=== PATIENT | male | born 1945 | race Caucasian/White ===

== ENCOUNTER 2017-02-05 10:04 | Inpatient (IN) | payer MEDICARE, BC ==
[~2017-02-05] VITALS: Ht 180.3 cm; Wt 121.1 kg
[~2017-02-05 10:04] MED LIST: DIGO125T PO; EZET1TAB33 PO; FENO145T25 PO; HYDR-2086 PO; METF500T4 PO; METO-336 PO; RAMI10TA PO
[2017-02-05] MEDS ORDERED: DILTIAZEM 25 MG INJ ONE (10:28)
[2017-02-05] MEDS ORDERED: SOD CHLORIDE 0.9% 500 ML IV STA (10:34)
[2017-02-05] MEDS ORDERED: PANTOPRAZOLE 40 MG INJ IV STA (10:34)
[2017-02-05] MEDS ORDERED: DILTIAZEM 25 MG INJ IV ONE ×2 (11:00→13:30)
[2017-02-05 11:02] LABS: BASOPHIL # 0.1 10^3/ul (0.0-0.1); BASOPHILS % 0.3 % (0.0-2.0); EOSINOPHILS # 0.3 10^3/ul (0.0-0.5); EOSINOPHILS % 1.2 % (0.0-7.0); HEMOGLOBIN 10.1 g/dl (14.0-18.0); LYMPHOCYTES # 4.1 10^3/ul (0.8-2.9); LYMPHOCYTES % 17.6 % (15.0-51.0); MEAN CORPUSCULAR HEMOGLOBIN 24.6 pg (29.0-33.0); MEAN CORPUSCULAR HGB CONC 29.7 g/dl (32.0-37.0); MEAN CORPUSCULAR VOLUME 82.7 fl (82.0-101.0); MEAN PLATELET VOLUME 11.6 fl (7.4-10.4); MONOCYTE # 1.5 10^3/ul (0.3-0.9); MONOCYTES % 6.4 % (0.0-11.0); NEUTROPHILS % 73.7 % (39.0-77.0); PLATELET COUNT 367 10^3/UL (140-415); RED BLOOD COUNT 4.11 10^6/ul (4.70-6.10); RED CELL DISTRIBUTION WIDTH 16.5 % (11.5-14.5); WHITE BLOOD COUNT 23.1 10^3/ul (4.8-10.8)
--- NOTE | 2017-02-05 11:33 | RADRPT ---
PROCEDURE: XR Chest 1 View. CLINICAL INDICATION: Shortness of breath, upper GI bleed. TECHNIQUE: AP view of the chest was obtained. COMPARISON: CR PORTABLE CHEST 01/31/2008 FINDINGS: The heart size is within normal limits. Calcified atherosclerosis is noted in the aorta. The lungs are hyperexpanded. No consolidations are identified. No pneumothorax is seen. Scattered subsegmenta l atelectasis is noted in both lungs. Osseous structures are intact. IMPRESSION: Calcified atherosclerosis in the aorta. Hyperexpanded lungs. Scattered subsegmental atelectasis in both lungs. RPTAT: AA .Nazario Pablo MD, MD Date Time Electronically viewed and signed by .Nazario Pablo MD, on 02/05/2017 11:33 .P/
[2017-02-05 11:34] LABS: ALANINE AMINOTRANSFERASE 36 IU/L (13-69); ALBUMIN 3.6 g/dl (3.3-4.9); ALBUMIN/GLOBULIN RATIO 1.38; ALKALINE PHOSPHATASE 47 IU/L (42-121); ANION GAP 17 (8-16); ASPARTATE AMINO TRANSFERASE 24 IU/L (15-46); BILIRUBIN,INDIRECT 0.3 mg/dl (0-1.1); BILIRUBIN,TOTAL 0.3 mg/dl (0.2-1.3); BLOOD UREA NITROGEN 31 mg/dl (7-20); CALCIUM 8.7 mg/dl (8.4-10.2); CARBON DIOXIDE 20 mmol/L (21-31); CHLORIDE 110 mmol/L (97-110); CREATININE 0.91 mg/dl (0.61-1.24); GLUCOSE 207 mg/dl (70-220); POTASSIUM 4.5 mmol/L (3.5-5.1); SODIUM 142 mmol/L (135-144); TOTAL PROTEIN 6.2 g/dl (6.1-8.1)
[2017-02-05] MEDS ORDERED: METF1000 PO (11:44)
[2017-02-05 11:45] LABS: TROPONIN-I < 0.012 ng/ml (0.00-0.12)
[2017-02-05] MEDS ORDERED: CLOP75TA27 PO (11:45)
[2017-02-05] MEDS ORDERED: APIX5TAB PO (11:45)
[2017-02-05 11:47] LABS: INR 1.11; PROTIME 14.3 Sec (12.2-14.2); PT RATIO 1.1
[2017-02-05 11:48] LABS: PARTIAL THROMBOPLASTIN TIME 30.5 Sec (25.0-35.0)
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
[2017-02-05] MEDS ORDERED: METOPROLOL 25 MG TAB PO ONE (12:20)
--- NOTE | 2017-02-05 12:23 | CONS ---
Date/Time of Note Date/Time of Note DATE: 02/05/17 TIME: 12:10 Assessment/Plan Assessment/Plan Additional Assessment/Plan GI bleed Atrial fibrillation, on anticoagulation CAD with distant history of PCI Diabetes History of hypertension, currently with borderline blood pressure Dyslipidemia -Patient on Plavix as well as Eliquis. In discussion with patient, patient with PCI in 2003 and has been on Plavix since. Given current GI bleed, I would hold both medications at the current time. Heart rate has improved with fluids and IV Cardizem. Would continue IV fluids, serial hemoglobins with GI workup. Would hold any antihypertensives at the current time, continue AV korey blocking agent as blood pressure permits. If the patient is planned for any endoscopic procedure, from a cardiac perspective, patient at an intermediate risk for any untoward cardiac events, but given active GI bleed, the benefits outweigh the risks. Consultation Date/Type/Reason Admit Date/Time Type of Consultation: cv Reason for Consultation Atrial fibrillation Hx of Present Illness This is a 71-year-old male past medical history atrial fibrillation, hypertension who presents with weakness and lightheadedness. Patient woke up this morning not feeling well. He then had multiple bowel movements of dark tarry stools. He does have a known history of GI bleeding in the past. He is on Eliquis and Plavix. Because of his symptoms, patient called 9 1 and brought to the emergency room. After being given IV fluids and IV Cardizem, patient is feeling much better with no dizziness, palpitations or chest pain. 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 Exam/Review of Systems Vital Signs Vitals Vital Signs Date Time Temp Pulse Resp B/P Pulse Ox O2 Delivery O2 Flow Rate FiO2 02/05/17 11:38 102 20 126/69 99 Room Air 02/05/17 10:18 97.9 Exam No apparent distress Constitutional: alert, obese, oriented Head: normocephalic Respiratory: clear to auscultation, normal air movement Cardiovascular: irregular rhythm, other (S1-S2 heard) Gastrointestinal: bowel sounds, non-tender, soft Extremities: edema (Trace) Results Result Diagram: 02/05/17 1040 02/05/17 1040 Results 24 hrs Laboratory Tests Test 02/05/17 10:40 White Blood Count 23.1 H Red Blood Count 4.11 L Hemoglobin 10.1 L Hematocrit 34.0 L Mean Corpuscular Volume 82.7 Mean Corpuscular Hemoglobin 24.6 L Mean Corpuscular Hemoglobin Concent 29.7 L Red Cell Distribution Width 16.5 H Platelet Count 367 Mean Platelet Volume 11.6 H Neutrophils % 73.7 Lymphocytes % 17.6 Monocytes % 6.4 Eosinophils % 1.2 Basophils % 0.3 Nucleated Red Blood Cells % 0.0 Neutrophils # 17.0 H Lymphocytes # 4.1 H Monocytes # 1.5 H Eosinophils # 0.3 Basophils # 0.1 Nucleated Red Blood Cells # 0.0 Prothrombin Time 14.3 H Prothrombin Time Ratio 1.1 INR International Normalized Ratio 1.11 Activated Partial Thromboplast Time 30.5 Sodium Level 142 Potassium Level 4.5 Chloride Level 110 Carbon Dioxide Level 20 L Anion Gap 17 H Blood Urea Nitrogen 31 H Creatinine 0.91 Glucose Level 207 Calcium Level 8.7 Total Bilirubin 0.3 Direct Bilirubin 0.00 Indirect Bilirubin 0.3 Aspartate Amino Transf (AST/SGOT) 24 Alanine Aminotransferase (ALT/SGPT) 36 Alkaline Phosphatase 47 Troponin I < 0.012 Total Protein 6.2 Albumin 3.6 Globulin 2.60 Albumin/Globulin Ratio 1.38 Procedures Procedures ECG demonstrates atrial fibrillation at 92 bpm, QRS 82 ms, no significant ST abnormalities Andrea Ch DO Feb 05, 2017 12:21
[2017-02-05] MEDS: SOD CHLORIDE 0.9% 1,000 ML IV SCH ×2 (13:11→22:30)
[2017-02-05] MEDS ORDERED: HYDROCODONE/APAP (5/325) TAB PO ONE (13:30)
[2017-02-05] MEDS ORDERED: PANTOPRAZOLE 40 MG INJ IV ONE (13:30)
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
[2017-02-05 15:50] VITALS: BP 116/67; PULSE 108; RESP 18
[2017-02-05] MEDS ORDERED: NACL 0.9% 3 ML SYG IV SCH (16:30)
[2017-02-05] MEDS ORDERED: DOCUSATE SODIUM 100 MG CAP PO PRN (16:30)
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
[2017-02-05] MEDS ORDERED: GLUCOSE GEL 15 GRAM TUBE BUCCAL PRN (17:30)
[2017-02-05] MEDS ORDERED: DEXTROSE 50% 50 ML SYRINGE IV PRN ×2 (17:30)
[2017-02-05] MEDS ORDERED: GLUCOSE GEL 15 GRAM TUBE PO PRN ×2 (17:30)
[2017-02-05] MEDS ORDERED: GLUCAGON 1 MG INJ IM PRN (17:30)
[2017-02-05] MEDS: SUCRALFATE 1 GM TAB PO SCH (17:59)
[2017-02-05] MEDS: metFORMIN 500 MG TAB PO SCH (17:59)
[2017-02-05] MEDS ORDERED: CYANOCOBALAMIN 1000 MCG INJ IM SCH (18:00)
[2017-02-05] MEDS ORDERED: SOD CHLORIDE 0.9% 500 ML IV ONE (18:00)
[2017-02-05] MEDS: PANTOPRAZOLE IV 80 MG in SOD CHLORIDE 0.9% 100 ML IV SCH (18:31)
[2017-02-05 19:01] VITALS: Ht 180.3 cm; Wt 121.1 kg
[2017-02-05 19:44] VITALS: BP 116/65; RESP 18
[2017-02-05 20:02] VITALS: PULSE 120
[2017-02-05] MEDS ORDERED: EZETIMIBE SIMVASTATIN PO SCH (21:00)
[2017-02-05 21:20] LABS: BASOPHILS % 0.3 % (0.0-2.0); EOSINOPHILS # 0.2 10^3/ul (0.0-0.5); EOSINOPHILS % 1.5 % (0.0-7.0); HEMATOCRIT 25.9 % (42.0-52.0); HEMOGLOBIN 7.9 g/dl (14.0-18.0); LYMPHOCYTES # 3.3 10^3/ul (0.8-2.9); MEAN CORPUSCULAR HEMOGLOBIN 25.4 pg (29.0-33.0); MEAN CORPUSCULAR HGB CONC 30.5 g/dl (32.0-37.0); MEAN CORPUSCULAR VOLUME 83.3 fl (82.0-101.0); MEAN PLATELET VOLUME 11.3 fl (7.4-10.4); MONOCYTE # 0.9 10^3/ul (0.3-0.9); MONOCYTES % 7.8 % (0.0-11.0); NEUTROPHIL # 7.2 10^3/ul (1.6-7.5); NEUTROPHILS % 61.4 % (39.0-77.0); PLATELET COUNT 280 10^3/UL (140-415); RED BLOOD COUNT 3.11 10^6/ul (4.70-6.10); RED CELL DISTRIBUTION WIDTH 16.4 % (11.5-14.5); WHITE BLOOD COUNT 11.7 10^3/ul (4.8-10.8)
[2017-02-05] MEDS: METOPROLOL 25 MG TAB PO SCH (21:49)
[2017-02-05] MEDS: SOD FERRIC GLUC COMPLX 125 MG in SOD CHLORIDE 0.9% 100 ML IVPB SCH (22:15)
[2017-02-05] MEDS: HYDROCODONE/APAP (5/325) TAB PO PRN (23:50)
[2017-02-06] VITALS (19 sets, daily range): BP systolic 100–141; BP diastolic 56–83; PULSE 94–171; RESP 14–24
[2017-02-06] MEDS ORDERED: TEMAZEPAM 15 MG CAP PO PRN ×2 (00:15→00:16)
[2017-02-06] MEDS: SUCRALFATE 1 GM TAB PO SCH ×4 (00:20→18:27)
[2017-02-06] MEDS: ACCU-CHEK XX SCH (02:00)
[2017-02-06] MEDS: PANTOPRAZOLE IV 80 MG in SOD CHLORIDE 0.9% 100 ML IV SCH ×3 (04:30→22:00)
[2017-02-06] MEDS: LIDOCAINE 5% PATCH TD SCH (05:10)
[2017-02-06] MEDS: HYDROCODONE/APAP (5/325) TAB PO PRN (06:18)
[2017-02-06] MEDS: metFORMIN 500 MG TAB PO SCH ×2 (07:55→18:27)
[2017-02-06 08:17] LABS: BASOPHILS % 0.1 % (0.0-2.0); EOSINOPHILS # 0.2 10^3/ul (0.0-0.5); EOSINOPHILS % 2.4 % (0.0-7.0); HEMATOCRIT 27.9 % (42.0-52.0); HEMOGLOBIN 8.6 g/dl (14.0-18.0); LYMPHOCYTES # 2.3 10^3/ul (0.8-2.9); LYMPHOCYTES % 25.3 % (15.0-51.0); MEAN CORPUSCULAR HEMOGLOBIN 26.1 pg (29.0-33.0); MEAN CORPUSCULAR HGB CONC 30.8 g/dl (32.0-37.0); MEAN CORPUSCULAR VOLUME 84.8 fl (82.0-101.0); MEAN PLATELET VOLUME 11.3 fl (7.4-10.4); MONOCYTE # 0.9 10^3/ul (0.3-0.9); MONOCYTES % 9.3 % (0.0-11.0); NEUTROPHIL # 5.7 10^3/ul (1.6-7.5); NEUTROPHILS % 61.9 % (39.0-77.0); PLATELET COUNT 227 10^3/UL (140-415); RED BLOOD COUNT 3.29 10^6/ul (4.70-6.10); RED CELL DISTRIBUTION WIDTH 16.4 % (11.5-14.5); WHITE BLOOD COUNT 9.2 10^3/ul (4.8-10.8)
[2017-02-06 08:51] LABS: ALBUMIN 2.7 g/dl (3.3-4.9); ALBUMIN/GLOBULIN RATIO 1.17; BILIRUBIN,INDIRECT 0.6 mg/dl (0-1.1); BILIRUBIN,TOTAL 0.6 mg/dl (0.2-1.3); CALCIUM 8.7 mg/dl (8.4-10.2); CREATININE 0.91 mg/dl (0.61-1.24); POTASSIUM 4.5 mmol/L (3.5-5.1)
[2017-02-06] MEDS ORDERED: RAMIPRIL 10 MG PO SCH (09:00)
--- NOTE | 2017-02-06 09:36 | PN ---
Date/Time of Note Date/Time of Note DATE: 02/06/17 TIME: 09:33 Assessment/Plan VTE Prophylaxis VTE Prophylaxis Intervention: SCD's Lines/Catheters [facility] Peripheral IV Assessment/Plan Assessment/Plan GI bleed Atrial fibrillation, on anticoagulation CAD with distant history of PCI Diabetes History of hypertension, currently with borderline blood pressure Dyslipidemia -Patient on Plavix as well as Eliquis. In discussion with patient, patient with PCI in 2003 and has been on Plavix since. Given current GI bleed, I would hold both medications at the current time. Heart rate has improved with fluids and IV Cardizem. Would continue IV fluids, serial hemoglobins with GI workup. Would hold any antihypertensives at the current time, continue AV korey blocking agent as blood pressure permits. If the patient is planned for any endoscopic procedure, from a cardiac perspective, patient at an intermediate risk for any untoward cardiac events, but given active GI bleed, the benefits outweigh the risks. 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 -GLYNN/cardioverison in 2-3 months -HR 120, and will monitor - currently n o po meds Subjective 24 Hr Interval Summary Free Text/Dictation the aptient with no complatins overngiht Exam/Review of Systems Vital Signs Vitals Vital Signs Date Time Temp Pulse Resp B/P Pulse Ox O2 Delivery O2 Flow Rate FiO2 02/06/17 08:14 127 02/06/17 07:44 98.0 18 132/60 98 02/05/17 15:50 Room Air Intake and Output 02/05/17 02/05/17 02/06/17 14:59 22:59 06:59 Intake Total 510 ml 300 ml Output Total 450 ml Balance 510 ml -150 ml Results Result Diagram: 02/06/17 0755 02/06/17 0755 Results 24 hrs Laboratory Tests Test 02/05/17 10:40 02/05/17 17:58 02/05/17 21:03 02/06/17 07:55 White Blood Count 23.1 H 11.7 #H 9.2 # Red Blood Count 4.11 L 3.11 #L 3.29 L Hemoglobin 10.1 L 7.9 #L 8.6 L Hematocrit 34.0 L 25.9 #L 27.9 L Mean Corpuscular Volume 82.7 83.3 84.8 Mean Corpuscular Hemoglobin 24.6 L 25.4 L 26.1 L Mean Corpuscular Hemoglobin Concent 29.7 L 30.5 L 30.8 L Red Cell Distribution Width 16.5 H 16.4 H 16.4 H Platelet Count 367 280 # 227 Mean Platelet Volume 11.6 H 11.3 H 11.3 H Neutrophils % 73.7 61.4 61.9 Lymphocytes % 17.6 28.0 25.3 Monocytes % 6.4 7.8 9.3 Eosinophils % 1.2 1.5 2.4 Basophils % 0.3 0.3 0.1 Nucleated Red Blood Cells % 0.0 0.0 0.0 Neutrophils # 17.0 H 7.2 5.7 Lymphocytes # 4.1 H 3.3 H 2.3 Monocytes # 1.5 H 0.9 0.9 Eosinophils # 0.3 0.2 0.2 Basophils # 0.1 0.0 0.0 Nucleated Red Blood Cells # 0.0 0.0 0.0 Prothrombin Time 14.3 H Prothrombin Time Ratio 1.1 INR International Normalized Ratio 1.11 Activated Partial Thromboplast Time 30.5 Sodium Level 142 141 Potassium Level 4.5 4.5 Chloride Level 110 111 H Carbon Dioxide Level 20 L 25 Anion Gap 17 H 10 # Blood Urea Nitrogen 31 H 38 H Creatinine 0.91 0.91 Glucose Level 207 125 # Calcium Level 8.7 8.7 Total Bilirubin 0.3 0.6 Direct Bilirubin 0.00 0.00 Indirect Bilirubin 0.3 0.6 Aspartate Amino Transf (AST/SGOT) 24 18 Alanine Aminotransferase (ALT/SGPT) 36 26 Alkaline Phosphatase 47 32 L Troponin I < 0.012 Total Protein 6.2 5.0 #L Albumin 3.6 2.7 L Globulin 2.60 2.30 Albumin/Globulin Ratio 1.38 1.17 Bedside Glucose 145 Medications Medications Current Medications Metoprolol Tartrate 25 mg 25 mg BID PO Last administered on 02/05/17 21:49; Admin Dose 25 MG; Start 02/05/17 at 21:00 Pantoprazole/ Sodium Chloride (Protonix Iv/NS) 100 ml @ 10 mls/hr Q10H IV Last administered on 02/06/17 04:30; Admin Dose 10 MLS/HR; Start 02/05/17 at 16 :00 Acetaminophen/ Hydrocodone Bitart ([place] (5/325)) 1 tab Q6H PRN PO PAIN LEVEL 4 -6 Last administered on 02/06/17 06:18; Admin Dose 1 TAB; Start 02/05/17 at 16: 30 Docusate Sodium (Colace) 100 mg Q12H PRN PO CONSTIPATION; Start 02/05/17 at 16: 30 Fenofibrate 145 mg 145 mg DAILY PO ; Start 02/06/17 at 09:00 Ferric Sodium Gluconate Complex/ Sodium Chloride (Ferrlecit/NS) 110 ml @ 100 mls/hr Q24H IVPB Last administered on 02/05/17 22:15; Admin Dose 100 MLS/HR; Start 02/05/17 at 19:00; Stop 02/07/17 at 20:05 Simvastatin (Zocor) 10 mg DAILY PO ; Start 02/06/17 at 09:00 EZETIMIBE (Zetia) 10 mg DAILY PO ; Start 02/06/17 at 09:00 Benazepril HCl (Lotensin) 20 mg DAILY PO ; Start 02/06/17 at 09:00 Diagnostic Test (Pha) (Accu-Chek) 1 ea 02 XX ; Start 02/06/17 at 02:00 Sucralfate (Carafate) 1 gm Q6 PO Last administered on 02/06/17 05:09; Admin Dose 1 GM; Start 02/05/17 at 18:00 Miscellaneous Information 1 ea NOTE XX ; Start 02/05/17 at 17:30 Glucose (Glutose) 15 gm Q15M PRN PO DECREASED GLUCOSE; Start 02/05/17 at 17:30 Glucose (Glutose) 22.5 gm Q15M PRN PO DECREASED GLUCOSE; Start 02/05/17 at 17: 30 Dextrose (D50w Syringe) 25 ml Q15M PRN IV DECREASED GLUCOSE; Start 02/05/17 at 17:30 Dextrose (D50w Syringe) 50 ml Q15M PRN IV DECREASED GLUCOSE; Start 02/05/17 at 17:30 Glucagon (Glucagen) 1 mg Q15M PRN IM DECREASED GLUCOSE; Start 02/05/17 at 17:30 Glucose (Glutose) 15 gm Q15M PRN BUCCAL DECREASED GLUCOSE; Start 02/05/17 at 17 :30 Temazepam (Restoril) 15 mg HS PRN PO INSOMNIA Last administered on 02/06/17 01 :22; Admin Dose 15 MG; Start 02/06/17 at 00:16 Lidocaine (Lidoderm) 1 patch DAILY TD Last administered on 02/06/17 05:10; Admin Dose 1 PATCH; Start 02/06/17 at 05:00 BAILEY MCDONOUGH MD Feb 06, 2017 09:36
--- NOTE | 2017-02-06 09:49 | PN ---
Date/Time of Note Date/Time of Note DATE: 02/06/17 TIME: 09:44 Assessment/Plan VTE Prophylaxis VTE Prophylaxis Intervention: contraindicated VTE Contraindication Reason: bleeding Lines/Catheters IV Catheter Type (from Nrsg): Peripheral IV Assessment/Plan Problems: (1) Low back pain Status: Chronic Comment: Added Lidoderm last night which has been helpful. Increase strength of [place] and frequency as needed. Add Dilaudid 1 mg IV if [place] and Lidoderm ineffective (2) Insomnia Status: Chronic Comment: Increase strength the temazepam from 15-30 mg. If this is ineffective will change to different medication (3) GI bleed Status: Acute Comment: Receiving Protonix and sucralfate. Upper endoscopy today Qualifiers: GI bleed type/associated pathology: melena Qualified Code: K92.1 - Gastrointestinal hemorrhage with melena (4) Atrial fibrillation with rapid ventricular response Status: Acute Comment: Anticoagulant on hold. (5) Diabetes mellitus type 2 in obese Status: Chronic Comment: Metformin on hold but patient is n.p.o. (6) Mixed hyperlipidemia due to type 2 diabetes mellitus Status: Chronic Comment: Statin on hold (7) Essential hypertension Status: Chronic Comment: BP regimen on hold Subjective 24 Hr Interval Summary Constitutional: No no complaints (Did not sleep well) Respiratory: no complaints Cardiovascular: no complaints Gastrointestinal: blood, other (Melena) Genitourinary: no complaints Musculoskeletal: back pain (Severe. Kept him awake.) Neurologic: no complaints Exam/Review of Systems Vital Signs Vitals VS - Last 72 Hours, by Label Date Time Temp Pulse Resp B/P Pulse Ox O2 Delivery O2 Flow Rate FiO2 02/06/17 08:14 127 02/06/17 07:44 98.0 80 18 132/60 98 02/06/17 04:03 140 02/06/17 00:01 114 02/06/17 00:00 98.0 59 20 106/56 98 02/05/17 20:02 120 02/05/17 19:44 98.0 88 18 116/65 99 02/05/17 15:50 97.8 108 18 116/67 99 Room Air 02/05/17 14:16 100 20 103/60 99 Room Air 02/05/17 13:08 136 20 116/73 99 Room Air 02/05/17 11:38 102 20 126/69 99 Room Air 02/05/17 10:35 106 20 105/92 99 Room Air 02/05/17 10:20 156 20 93/68 99 Room Air 02/05/17 10:18 97.9 143 20 116/79 99 Vital Signs Date Time Temp Pulse Resp B/P Pulse Ox O2 Delivery O2 Flow Rate FiO2 02/06/17 08:14 127 02/06/17 07:44 98.0 18 132/60 98 02/05/17 15:50 Room Air Intake and Output 02/05/17 02/05/17 02/06/17 15:00 23:00 07:00 Intake Total 510 ml 300 ml Output Total 450 ml Balance 510 ml -150 ml Exam Constitutional: alert, obese, oriented Psych: nl mood/affect, no complaints Respiratory: clear to auscultation, normal air movement Cardiovascular: nl pulses, regular rate and rhythm, No edema, No murmurs/extra sounds, No rub Gastrointestinal: bowel sounds, nl liver, spleen, non-tender, soft, No mass, No rebound or guarding Musculoskeletal: nl extremities to inspection Extremities: normal pulses, No clubbing, No cyanosis, No edema 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, nl mental status, nl speech, nl strength Results Result Diagram: 02/06/17 0755 02/06/17 0755 Results 24 hrs Laboratory Tests Test 02/05/17 10:40 02/05/17 17:58 02/05/17 21:03 02/06/17 07:55 White Blood Count 23.1 H 11.7 #H 9.2 # Red Blood Count 4.11 L 3.11 #L 3.29 L Hemoglobin 10.1 L 7.9 #L 8.6 L Hematocrit 34.0 L 25.9 #L 27.9 L Mean Corpuscular Volume 82.7 83.3 84.8 Mean Corpuscular Hemoglobin 24.6 L 25.4 L 26.1 L Mean Corpuscular Hemoglobin Concent 29.7 L 30.5 L 30.8 L Red Cell Distribution Width 16.5 H 16.4 H 16.4 H Platelet Count 367 280 # 227 Mean Platelet Volume 11.6 H 11.3 H 11.3 H Neutrophils % 73.7 61.4 61.9 Lymphocytes % 17.6 28.0 25.3 Monocytes % 6.4 7.8 9.3 Eosinophils % 1.2 1.5 2.4 Basophils % 0.3 0.3 0.1 Nucleated Red Blood Cells % 0.0 0.0 0.0 Neutrophils # 17.0 H 7.2 5.7 Lymphocytes # 4.1 H 3.3 H 2.3 Monocytes # 1.5 H 0.9 0.9 Eosinophils # 0.3 0.2 0.2 Basophils # 0.1 0.0 0.0 Nucleated Red Blood Cells # 0.0 0.0 0.0 Prothrombin Time 14.3 H Prothrombin Time Ratio 1.1 INR International Normalized Ratio 1.11 Activated Partial Thromboplast Time 30.5 Sodium Level 142 141 Potassium Level 4.5 4.5 Chloride Level 110 111 H Carbon Dioxide Level 20 L 25 Anion Gap 17 H 10 # Blood Urea Nitrogen 31 H 38 H Creatinine 0.91 0.91 Glucose Level 207 125 # Calcium Level 8.7 8.7 Total Bilirubin 0.3 0.6 Direct Bilirubin 0.00 0.00 Indirect Bilirubin 0.3 0.6 Aspartate Amino Transf (AST/SGOT) 24 18 Alanine Aminotransferase (ALT/SGPT) 36 26 Alkaline Phosphatase 47 32 L Troponin I < 0.012 Total Protein 6.2 5.0 #L Albumin 3.6 2.7 L Globulin 2.60 2.30 Albumin/Globulin Ratio 1.38 1.17 Bedside Glucose 145 Medications Medications Current Medications Metoprolol Tartrate 25 mg 25 mg BID PO Last administered on 02/05/17 21:49; Admin Dose 25 MG; Start 02/05/17 at 21:00 Pantoprazole/ Sodium Chloride (Protonix Iv/NS) 100 ml @ 10 mls/hr Q10H IV Last administered on 02/06/17 04:30; Admin Dose 10 MLS/HR; Start 02/05/17 at 16 :00 Acetaminophen/ Hydrocodone Bitart ([place] (5/325)) 1 tab Q6H PRN PO PAIN LEVEL 4 -6 Last administered on 02/06/17 06:18; Admin Dose 1 TAB; Start 02/05/17 at 16: 30 Docusate Sodium (Colace) 100 mg Q12H PRN PO CONSTIPATION; Start 02/05/17 at 16: 30 Fenofibrate 145 mg 145 mg DAILY PO ; Start 02/06/17 at 09:00 Ferric Sodium Gluconate Complex/ Sodium Chloride (Ferrlecit/NS) 110 ml @ 100 mls/hr Q24H IVPB Last administered on 02/05/17 22:15; Admin Dose 100 MLS/HR; Start 02/05/17 at 19:00; Stop 02/07/17 at 20:05 Simvastatin (Zocor) 10 mg DAILY PO ; Start 02/06/17 at 09:00 EZETIMIBE (Zetia) 10 mg DAILY PO ; Start 02/06/17 at 09:00 Benazepril HCl (Lotensin) 20 mg DAILY PO ; Start 02/06/17 at 09:00 Diagnostic Test (Pha) (Accu-Chek) 1 ea 02 XX ; Start 02/06/17 at 02:00 Sucralfate (Carafate) 1 gm Q6 PO Last administered on 02/06/17 05:09; Admin Dose 1 GM; Start 02/05/17 at 18:00 Miscellaneous Information 1 ea NOTE XX ; Start 02/05/17 at 17:30 Glucose (Glutose) 15 gm Q15M PRN PO DECREASED GLUCOSE; Start 02/05/17 at 17:30 Glucose (Glutose) 22.5 gm Q15M PRN PO DECREASED GLUCOSE; Start 02/05/17 at 17: 30 Dextrose (D50w Syringe) 25 ml Q15M PRN IV DECREASED GLUCOSE; Start 02/05/17 at 17:30 Dextrose (D50w Syringe) 50 ml Q15M PRN IV DECREASED GLUCOSE; Start 02/05/17 at 17:30 Glucagon (Glucagen) 1 mg Q15M PRN IM DECREASED GLUCOSE; Start 02/05/17 at 17:30 Glucose (Glutose) 15 gm Q15M PRN BUCCAL DECREASED GLUCOSE; Start 02/05/17 at 17 :30 Temazepam (Restoril) 15 mg HS PRN PO INSOMNIA Last administered on 02/06/17 01 :22; Admin Dose 15 MG; Start 02/06/17 at 00:16 Lidocaine (Lidoderm) 1 patch DAILY TD Last administered on 02/06/17 05:10; Admin Dose 1 PATCH; Start 02/06/17 at 05:00 TERESA WHITTEN MD Feb 06, 2017 09:49
[2017-02-06] MEDS ORDERED: HYDROmorphONE 1 MG/ML SYG IV PRN (10:00)
[2017-02-06] MEDS: EZETIMIBE 10 MG TAB PO SCH (11:10)
[2017-02-06] MEDS: SIMVASTATIN 10 MG TAB PO SCH (11:10)
[2017-02-06] MEDS: FENOFIBRATE 145 MG TAB PO SCH (11:10)
[2017-02-06] MEDS: METOPROLOL 25 MG TAB PO SCH ×2 (11:10→21:11)
[2017-02-06] MEDS: BENAZEPRIL 20 MG TAB PO SCH (11:11)
[2017-02-06] MEDS: HYDROCODONE/APAP (10/325) TAB PO PRN ×3 (11:25→20:09)
[2017-02-06] MEDS ORDERED: PROPOFOL 40 ML ONE (13:26)
[2017-02-06] MEDS ORDERED: METOPROLOL 5 MG INJ ONE (13:31)
--- NOTE | 2017-02-06 14:06 | OPPN ---
Date/Time of Note Date/Time of Note DATE: 02/06/17 TIME: 14:01 Proc Note GI Procedure Date 02/06/17 Pre-procedure Diagnosis GI Bleed Post-procedure Diagnosis Marginal Ulcer / Endoclip Deployed for hemostasis Procedure Performed: Endoscopy Surgeon see signature line Party Plan Sales Director none Anesthesia Type: MAC Tourniquet Time none EBL none Transfusion required none Grafts/Implants Endoclip Tubes/Drains none Complication(s) none Pt Condition post procedure: stable Disposition: PACU Indications: other Operative\Procedure Findings After informed consent, the patient was placed in left lateral position and sedated per anesthesia. The Olympus video endoscope was easily passed in patient's esophagus. The instrument advanced to the gastroesophageal junction stomach. Anastomosis was clearly identified with 2 limbs of small bowel. At the anastomosis a 1 cm ulcer with a visible vessel was seen. An Endo Clip was placed on the ulcer site. Hemostasis was obtained. The patient tolerated procedure well. Turnaround procedure was within normal limits. JARED ESPINOZA MD Feb 06, 2017 14:06
[2017-02-06] MEDS: SOD FERRIC GLUC COMPLX 125 MG in SOD CHLORIDE 0.9% 100 ML IVPB SCH (18:27)
[2017-02-06 20:37] LABS: HEMATOCRIT 27.4 % (42.0-52.0); HEMOGLOBIN 8.7 g/dl (14.0-18.0)
[2017-02-06] MEDS: TEMAZEPAM 15 MG CAP PO PRN (22:01)
[2017-02-07] VITALS (12 sets, daily range): BP systolic 115–144; BP diastolic 67–79; PULSE 85–139; RESP 16–18
[2017-02-07] MEDS: ACCU-CHEK XX SCH (01:56)
[2017-02-07 02:26] LABS: HEMATOCRIT 26.1 % (42.0-52.0); HEMOGLOBIN 8.2 g/dl (14.0-18.0)
[2017-02-07] MEDS: HYDROCODONE/APAP (10/325) TAB PO PRN ×5 (02:51→20:19)
[2017-02-07] MEDS: SUCRALFATE 1 GM TAB PO SCH ×4 (05:35→17:39)
[2017-02-07] MEDS: PANTOPRAZOLE IV 80 MG in SOD CHLORIDE 0.9% 100 ML IV SCH ×2 (06:00→08:00)
--- NOTE | 2017-02-07 07:04 | PQ ---
Date/Time of Note Date/Time of Note DATE: 02/07/17 TIME: 06:58 Physician Query Documentation Clarification Dear Dr. Alcala, A review of the medical record found a need for documentation clarification. H & P - Acute GI Bleeding H/H = 10.1/34-------->7.9/25.9 PRBC = 2 units received 02/05 Please clarify a diagnosis being treated ( if known). To facilitate accurate and complete coding, please dakota ( x ) the suspected diagnosis that apply: ( X ) precipitous drop in hgb/ hct ( X ) acute blood loss anemia ( ) Iron deficiency anemia only ( ) Others Please provide your response by clicking edit document, making your choice ( x ), click ok/save and finally click sign. You may also document your response on your progress notes. Thank you for your time. With appreciation, Marquis Alcocer RN, BSN, CCS, CCDS Clinical Paraprofessional Interpreter Health Information Management, CDI and Coding Services [phone] Room # 1525 - [address]~ [id number] MARQUIS ALCOCER Feb 07, 2017 07:04 MONO ALCALA MD Feb 07, 2017 14:04
[2017-02-07] MEDS: EZETIMIBE 10 MG TAB PO SCH (08:29)
[2017-02-07] MEDS: FENOFIBRATE 145 MG TAB PO SCH (08:29)
[2017-02-07] MEDS: SIMVASTATIN 10 MG TAB PO SCH (08:29)
[2017-02-07] MEDS: BENAZEPRIL 20 MG TAB PO SCH (08:29)
[2017-02-07] MEDS: LIDOCAINE 5% PATCH TD SCH ×2 (08:31→09:00)
[2017-02-07] MEDS: METOPROLOL 25 MG TAB PO SCH ×2 (08:32→21:10)
[2017-02-07] MEDS: metFORMIN 500 MG TAB PO SCH ×2 (08:43→17:39)
[2017-02-07 08:50] LABS: BASOPHILS % 0.3 % (0.0-2.0); EOSINOPHILS # 0.4 10^3/ul (0.0-0.5); EOSINOPHILS % 3.9 % (0.0-7.0); HEMATOCRIT 28.2 % (42.0-52.0); HEMOGLOBIN 8.6 g/dl (14.0-18.0); LYMPHOCYTES # 2.9 10^3/ul (0.8-2.9); LYMPHOCYTES % 32.5 % (15.0-51.0); MEAN CORPUSCULAR HEMOGLOBIN 26.7 pg (29.0-33.0); MEAN CORPUSCULAR HGB CONC 30.5 g/dl (32.0-37.0); MEAN CORPUSCULAR VOLUME 87.6 fl (82.0-101.0); MEAN PLATELET VOLUME 11.5 fl (7.4-10.4); MONOCYTE # 0.8 10^3/ul (0.3-0.9); NEUTROPHIL # 4.7 10^3/ul (1.6-7.5); PLATELET COUNT 244 10^3/UL (140-415); RED BLOOD COUNT 3.22 10^6/ul (4.70-6.10); RED CELL DISTRIBUTION WIDTH 17.1 % (11.5-14.5); WHITE BLOOD COUNT 8.9 10^3/ul (4.8-10.8)
--- NOTE | 2017-02-07 13:30 | PN ---
Date/Time of Note Date/Time of Note DATE: 02/07/17 TIME: 13:29 Assessment/Plan VTE Prophylaxis VTE Prophylaxis Intervention: SCD's Lines/Catheters IV [facility] Type (from [facility] [place] Assessment/Plan Assessment/Plan GI bleed Atrial fibrillation, on anticoagulation CAD with distant history of PCI Diabetes History of hypertension, currently with borderline blood pressure Dyslipidemia -Patient on Plavix as well as Eliquis. In discussion with patient, patient with PCI in 2003 and has been on Plavix since. Given current GI bleed, I would hold both medications at the current time. Heart rate has improved with fluids and IV Cardizem. Would continue IV fluids, serial hemoglobins with GI workup. Would hold any antihypertensives at the current time, continue AV korey blocking agent as blood pressure permits. . 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 -GLYNN/cardioverison in 2-3 months -HR 120, and will monitor - currently no po meds Subjective 24 Hr Interval Summary Free Text/Dictation The pateitn with no cahnge - no cehst pain and no sob Exam/Review of Systems Vital Signs Vitals Vital Signs Date Time Temp Pulse Resp B/P Pulse Ox O2 Delivery O2 Flow Rate FiO2 02/07/17 12:09 104 02/07/17 11:51 98.1 16 144/79 98 02/06/17 14:31 Room Air 02/06/17 13:56 15 Intake and Output 02/06/17 02/06/17 02/07/17 15:00 23:00 07:00 Intake Total 750 ml 2000 ml Balance 750 ml 2000 ml Results Result Diagram: 02/07/17 0742 02/06/17 0755 Results 24 hrs Laboratory Tests Test 02/06/17 20:30 02/07/17 02:00 02/07/17 06:05 02/07/17 07:42 Hemoglobin 8.7 L 8.2 L 8.6 L Hematocrit 27.4 L 26.1 L 28.2 L Lab Scanned Report BLOOD TRANSFUSION White Blood Count 8.9 Red Blood Count 3.22 L Mean Corpuscular Volume 87.6 Mean Corpuscular Hemoglobin 26.7 L Mean Corpuscular Hemoglobin Concent 30.5 L Red Cell Distribution Width 17.1 H Platelet Count 244 Mean Platelet Volume 11.5 H Neutrophils % 53.0 Lymphocytes % 32.5 Monocytes % 9.0 Eosinophils % 3.9 Basophils % 0.3 Nucleated Red Blood Cells % 0.0 Neutrophils # 4.7 Lymphocytes # 2.9 Monocytes # 0.8 Eosinophils # 0.4 Basophils # 0.0 Nucleated Red Blood Cells # 0.0 Test 02/07/17 07:52 02/07/17 11:44 Bedside Glucose 118 111 Medications Medications Current Medications Metoprolol Tartrate 25 mg 25 mg BID PO Last administered on 02/07/17 08:32; Admin Dose 25 MG; Start 02/05/17 at 21:00 Pantoprazole/ Sodium Chloride (Protonix Iv/NS) 100 ml @ 10 mls/hr Q10H IV Last administered on 02/07/17 06:00; Admin Dose 10 MLS/HR; Start 02/05/17 at 16 :00 Docusate Sodium (Colace) 100 mg Q12H PRN PO CONSTIPATION; Start 02/05/17 at 16: 30 Fenofibrate 145 mg 145 mg DAILY PO Last administered on 02/07/17 08:29; Admin Dose 145 MG; Start 02/06/17 at 09:00 Ferric Sodium Gluconate Complex/ Sodium Chloride (Ferrlecit/NS) 110 ml @ 100 mls/hr Q24H IVPB Last administered on 02/06/17 18:27; Admin Dose 100 MLS/HR; Start 02/05/17 at 19:00; Stop 02/07/17 at 20:05 Simvastatin (Zocor) 10 mg DAILY PO Last administered on 02/07/17 08:29; Admin Dose 10 MG; Start 02/06/17 at 09:00 EZETIMIBE (Zetia) 10 mg DAILY PO Last administered on 02/07/17 08:29; Admin Dose 10 MG; Start 02/06/17 at 09:00 Benazepril HCl (Lotensin) 20 mg DAILY PO Last administered on 02/07/17 08:29; Admin Dose 20 MG; Start 02/06/17 at 09:00 Diagnostic Test (Pha) (Accu-Chek) 1 ea 02 XX ; Start 02/06/17 at 02:00 Sucralfate (Carafate) 1 gm Q6 PO Last administered on 02/07/17 11:41; Admin Dose 1 GM; Start 02/05/17 at 18:00 Miscellaneous Information 1 ea NOTE XX ; Start 02/05/17 at 17:30 Glucose (Glutose) 15 gm Q15M PRN PO DECREASED GLUCOSE; Start 02/05/17 at 17:30 Glucose (Glutose) 22.5 gm Q15M PRN PO DECREASED GLUCOSE; Start 02/05/17 at 17: 30 Dextrose (D50w Syringe) 25 ml Q15M PRN IV DECREASED GLUCOSE; Start 02/05/17 at 17:30 Dextrose (D50w Syringe) 50 ml Q15M PRN IV DECREASED GLUCOSE; Start 02/05/17 at 17:30 Glucagon (Glucagen) 1 mg Q15M PRN IM DECREASED GLUCOSE; Start 02/05/17 at 17:30 Glucose (Glutose) 15 gm Q15M PRN BUCCAL DECREASED GLUCOSE; Start 02/05/17 at 17 :30 Lidocaine (Lidoderm) 1 patch DAILY TD Last administered on 02/06/17 05:10; Admin Dose 1 PATCH; Start 02/06/17 at 05:00 Temazepam (Restoril) 30 mg HS PRN PO INSOMNIA Last administered on 02/06/17 22 :01; Admin Dose 30 MG; Start 02/06/17 at 10:00 Acetaminophen/ Hydrocodone Bitart ([place] (10/325)) 1 tab Q4H PRN PO PAIN LEVEL 1-5 Last administered on 02/07/17 08:29; Admin Dose 1 TAB; Start 02/06/17 at 10 :00 Acetaminophen/ Hydrocodone Bitart ([place] (10/325)) 2 tab Q4H PRN PO PAIN LEVEL 6-10 Last administered on 02/07/17 12:29; Admin Dose 2 TAB; Start 02/06/17 at 10:00 Hydromorphone HCl (Dilaudid) 1 mg Q4H PRN IV SEVERE PAIN LEVEL 7-10; Start at 10:00 BAILEY MCDONOUGH MD Feb 07, 2017 13:30
--- NOTE | 2017-02-07 13:52 | CONS ---
Date/Time of Note Date/Time of Note DATE: 02/07/17 TIME: 13:47 Consult Date/Type/Reason Admit Date/Time Feb 05, 2017 at 11:51 Initial Consult Date Type of Consultation: GI Subjective No further bleeding Tolerating diet Objective Vital Signs Date Time Temp Pulse Resp B/P Pulse Ox O2 Delivery O2 Flow Rate FiO2 02/07/17 12:09 104 02/07/17 11:51 98.1 16 144/79 98 02/06/17 14:31 Room Air 02/06/17 13:56 15 Chest: Clear Cardiac: no m ,r, g Abdomen: soft, non tender Intake and Output 02/06/17 02/06/17 02/07/17 15:00 23:00 07:00 Intake Total 750 ml 2000 ml Balance 750 ml 2000 ml Results/Medications Result Diagram: 02/07/17 0742 02/06/17 0755 Results 24 hrs Laboratory Tests Test 02/06/17 20:30 02/07/17 02:00 02/07/17 06:05 02/07/17 07:42 Hemoglobin 8.7 L 8.2 L 8.6 L Hematocrit 27.4 L 26.1 L 28.2 L Lab Scanned Report BLOOD TRANSFUSION White Blood Count 8.9 Red Blood Count 3.22 L Mean Corpuscular Volume 87.6 Mean Corpuscular Hemoglobin 26.7 L Mean Corpuscular Hemoglobin Concent 30.5 L Red Cell Distribution Width 17.1 H Platelet Count 244 Mean Platelet Volume 11.5 H Neutrophils % 53.0 Lymphocytes % 32.5 Monocytes % 9.0 Eosinophils % 3.9 Basophils % 0.3 Nucleated Red Blood Cells % 0.0 Neutrophils # 4.7 Lymphocytes # 2.9 Monocytes # 0.8 Eosinophils # 0.4 Basophils # 0.0 Nucleated Red Blood Cells # 0.0 Test 02/07/17 07:52 02/07/17 11:44 Bedside Glucose 118 111 Medications Current Medications Metoprolol Tartrate (Lopressor) 25 mg BID PO Last administered on 02/07/17 08: 32; Admin Dose 25 MG; Start 02/05/17 at 21:00 Docusate Sodium (Colace) 100 mg Q12H PRN PO CONSTIPATION; Start 02/05/17 at 16: 30 Fenofibrate 145 mg 145 mg DAILY PO Last administered on 02/07/17 08:29; Admin Dose 145 MG; Start 02/06/17 at 09:00 Ferric Sodium Gluconate Complex/ Sodium Chloride (Ferrlecit/NS) 110 ml @ 100 mls/hr Q24H IVPB Last administered on 02/06/17 18:27; Admin Dose 100 MLS/HR; Start 02/05/17 at 19:00; Stop 02/07/17 at 20:05 Simvastatin (Zocor) 10 mg DAILY PO Last administered on 02/07/17 08:29; Admin Dose 10 MG; Start 02/06/17 at 09:00 EZETIMIBE (Zetia) 10 mg DAILY PO Last administered on 02/07/17 08:29; Admin Dose 10 MG; Start 02/06/17 at 09:00 Benazepril HCl (Lotensin) 20 mg DAILY PO Last administered on 02/07/17 08:29; Admin Dose 20 MG; Start 02/06/17 at 09:00 Diagnostic Test (Pha) (Accu-Chek) 1 ea 02 XX ; Start 02/06/17 at 02:00 Sucralfate (Carafate) 1 gm Q6 PO Last administered on 02/07/17 11:41; Admin Dose 1 GM; Start 02/05/17 at 18:00 Miscellaneous Information 1 ea NOTE XX ; Start 02/05/17 at 17:30 Glucose (Glutose) 15 gm Q15M PRN PO DECREASED GLUCOSE; Start 02/05/17 at 17:30 Glucose (Glutose) 22.5 gm Q15M PRN PO DECREASED GLUCOSE; Start 02/05/17 at 17: 30 Dextrose (D50w Syringe) 25 ml Q15M PRN IV DECREASED GLUCOSE; Start 02/05/17 at 17:30 Dextrose (D50w Syringe) 50 ml Q15M PRN IV DECREASED GLUCOSE; Start 02/05/17 at 17:30 Glucagon (Glucagen) 1 mg Q15M PRN IM DECREASED GLUCOSE; Start 02/05/17 at 17:30 Glucose (Glutose) 15 gm Q15M PRN BUCCAL DECREASED GLUCOSE; Start 02/05/17 at 17 :30 Lidocaine (Lidoderm) 1 patch DAILY TD Last administered on 02/06/17 05:10; Admin Dose 1 PATCH; Start 02/06/17 at 05:00 Temazepam (Restoril) 30 mg HS PRN PO INSOMNIA Last administered on 02/06/17 22 :01; Admin Dose 30 MG; Start 02/06/17 at 10:00 Acetaminophen/ Hydrocodone Bitart ([place] (10/325)) 1 tab Q4H PRN PO PAIN LEVEL 1-5 Last administered on 02/07/17 08:29; Admin Dose 1 TAB; Start 02/06/17 at 10 :00 Acetaminophen/ Hydrocodone Bitart ([place] (10/325)) 2 tab Q4H PRN PO PAIN LEVEL 6-10 Last administered on 02/07/17 12:29; Admin Dose 2 TAB; Start 02/06/17 at 10:00 Hydromorphone HCl (Dilaudid) 1 mg Q4H PRN IV SEVERE PAIN LEVEL 7-10; Start at 10:00 Pantoprazole (Protonix Tab) 40 mg BID@06,18 PO ; Start 02/07/17 at 18:00 Assessment/Plan Chief Complaint/Hosp Course Impression: 1. Marginal Ulcer Bleed - s/p clipping - stable Plan: 1. Continue ppi bid ac indefinitely 2. Gradually advance diet 3. Discussed with Dr. Dubon - restart 1 anticoagulant in 1 weeks; Then EGD to document ulcer healing in 1 month before staring second anticoagulant 4. If stable discharge in am per Dr. Alcala 5. Have told patient to call immediately for any bleeding; otherwise will arrange for EGD in 1 month Problems: JARED ESPINOZA MD Feb 07, 2017 13:52
--- NOTE | 2017-02-07 14:16 | PN ---
Date/Time of Note Date/Time of Note DATE: 02/07/17 TIME: 14:13 Assessment/Plan VTE Prophylaxis VTE Prophylaxis Intervention: contraindicated Lines/Catheters IV [facility] Type [facility]from [facility] Saline Lock Assessment/Plan Problems: (1) GI bleed Status: Acute Comment: He had a visible vessel at the anastomotic junction that was bleeding. This is been clipped. He has been stable and if continues stability then he should be able to be discharged in the morning. Resumption of 1 of 2 anticoagulants in 1 week. In 1 month he needs reevaluation and if that reevaluation shows good progress then he would resume the second anticoagulant. He should be on lifelong proton pump inhibitor therapy. Qualifiers: GI bleed type/associated pathology: melena Qualified Code: K92.1 - Gastrointestinal hemorrhage with melena (2) Atrial fibrillation with rapid ventricular response Status: Acute Comment: Noted. Rate is controlled. Resumption of anticoagulation 1 week (3) Obesity (BMI 30-39.9) Status: Chronic Comment: Calorie restriction diet (4) Diabetes mellitus type 2 in obese Status: Chronic Comment: Adequate control on current medication regimen (5) Mixed hyperlipidemia due to type 2 diabetes mellitus Status: Chronic Comment: Adequate control with current medication regimen (6) Obstructive sleep apnea Status: Chronic Comment: Stable adequate control on current medication regimen (7) Essential hypertension Status: Chronic Comment: Adequate control with medicine (8) Iron deficiency anemia Status: Chronic Comment: His anemia is stable and is also received IV iron to help replete his depleted stores Qualifiers: Iron deficiency anemia type: chronic blood loss Qualified Code: D50.0 - Iron deficiency anemia due to chronic blood loss (9) B12 deficiency Status: Chronic Comment: Stable and has had replacement. This is due to his prior bariatric surgery (10) Coronary artery disease Status: Chronic Comment: Quiescent Qualifiers: Coronary Disease-Associated Artery/Lesion type: minto artery [place] vs. transplanted heart: minto heart Associated angina: without angina Qualified Code: I25.10 - Coronary artery disease involving minto coronary artery of minto heart without angina pectoris Subjective 24 Hr Interval Summary Free Text/Dictation Patient reports that he is feeling better today. Constitutional: no complaints Respiratory: no complaints Cardiovascular: no complaints Gastrointestinal: no complaints Genitourinary: no complaints Musculoskeletal: no complaints Exam/Review of Systems Vital Signs Vitals Vital Signs Date Time Temp Pulse Resp B/P Pulse Ox O2 Delivery O2 Flow Rate FiO2 02/07/17 12:09 104 02/07/17 11:51 98.1 16 144/79 98 02/06/17 14:31 Room Air 02/06/17 13:56 15 Intake and Output 02/06/17 02/06/17 02/07/17 15:00 23:00 07:00 Intake Total 750 ml 2000 ml Balance 750 ml 2000 ml Exam Constitutional: alert, oriented Neck: non-tender, supple Respiratory: clear to auscultation, normal air movement Cardiovascular: irregular rhythm, nl pulses Gastrointestinal: nl liver, spleen, non-tender, soft Results Result Diagram: 02/07/17 0742 02/06/17 0755 Results 24 hrs Laboratory Tests Test 02/06/17 20:30 02/07/17 02:00 02/07/17 06:05 02/07/17 07:42 Hemoglobin 8.7 L 8.2 L 8.6 L Hematocrit 27.4 L 26.1 L 28.2 L Lab Scanned Report BLOOD TRANSFUSION White Blood Count 8.9 Red Blood Count 3.22 L Mean Corpuscular Volume 87.6 Mean Corpuscular Hemoglobin 26.7 L Mean Corpuscular Hemoglobin Concent 30.5 L Red Cell Distribution Width 17.1 H Platelet Count 244 Mean Platelet Volume 11.5 H Neutrophils % 53.0 Lymphocytes % 32.5 Monocytes % 9.0 Eosinophils % 3.9 Basophils % 0.3 Nucleated Red Blood Cells % 0.0 Neutrophils # 4.7 Lymphocytes # 2.9 Monocytes # 0.8 Eosinophils # 0.4 Basophils # 0.0 Nucleated Red Blood Cells # 0.0 Test 02/07/17 07:52 02/07/17 11:44 Bedside Glucose 118 111 Medications Medications Current Medications Metoprolol Tartrate (Lopressor) 25 mg BID PO Last administered on 02/07/17 08: 32; Admin Dose 25 MG; Start 02/05/17 at 21:00 Docusate Sodium (Colace) 100 mg Q12H PRN PO CONSTIPATION; Start 02/05/17 at 16: 30 Fenofibrate 145 mg 145 mg DAILY PO Last administered on 02/07/17 08:29; Admin Dose 145 MG; Start 02/06/17 at 09:00 Ferric Sodium Gluconate Complex/ Sodium Chloride (Ferrlecit/NS) 110 ml @ 100 mls/hr Q24H IVPB Last administered on 02/06/17 18:27; Admin Dose 100 MLS/HR; Start 02/05/17 at 19:00; Stop 02/07/17 at 20:05 Simvastatin (Zocor) 10 mg DAILY PO Last administered on 02/07/17 08:29; Admin Dose 10 MG; Start 02/06/17 at 09:00 EZETIMIBE (Zetia) 10 mg DAILY PO Last administered on 02/07/17 08:29; Admin Dose 10 MG; Start 02/06/17 at 09:00 Benazepril HCl (Lotensin) 20 mg DAILY PO Last administered on 02/07/17 08:29; Admin Dose 20 MG; Start 02/06/17 at 09:00 Diagnostic Test (Pha) (Accu-Chek) 1 ea 02 XX ; Start 02/06/17 at 02:00 Sucralfate (Carafate) 1 gm Q6 PO Last administered on 02/07/17 11:41; Admin Dose 1 GM; Start 02/05/17 at 18:00 Miscellaneous Information 1 ea NOTE XX ; Start 02/05/17 at 17:30 Glucose (Glutose) 15 gm Q15M PRN PO DECREASED GLUCOSE; Start 02/05/17 at 17:30 Glucose (Glutose) 22.5 gm Q15M PRN PO DECREASED GLUCOSE; Start 02/05/17 at 17: 30 Dextrose (D50w Syringe) 25 ml Q15M PRN IV DECREASED GLUCOSE; Start 02/05/17 at 17:30 Dextrose (D50w Syringe) 50 ml Q15M PRN IV DECREASED GLUCOSE; Start 02/05/17 at 17:30 Glucagon (Glucagen) 1 mg Q15M PRN IM DECREASED GLUCOSE; Start 02/05/17 at 17:30 Glucose (Glutose) 15 gm Q15M PRN BUCCAL DECREASED GLUCOSE; Start 02/05/17 at 17 :30 Lidocaine (Lidoderm) 1 patch DAILY TD Last administered on 02/06/17 05:10; Admin Dose 1 PATCH; Start 02/06/17 at 05:00 Temazepam (Restoril) 30 mg HS PRN PO INSOMNIA Last administered on 02/06/17 22 :01; Admin Dose 30 MG; Start 02/06/17 at 10:00 Acetaminophen/ Hydrocodone Bitart ([place] (10/325)) 1 tab Q4H PRN PO PAIN LEVEL 1-5 Last administered on 02/07/17 08:29; Admin Dose 1 TAB; Start 02/06/17 at 10 :00 Acetaminophen/ Hydrocodone Bitart ([place] (10/325)) 2 tab Q4H PRN PO PAIN LEVEL 6-10 Last administered on 02/07/17 12:29; Admin Dose 2 TAB; Start 02/06/17 at 10:00 Hydromorphone HCl (Dilaudid) 1 mg Q4H PRN IV SEVERE PAIN LEVEL 7-10; Start at 10:00 Pantoprazole (Protonix Tab) 40 mg BID@,18 PO ; Start 02/07/17 at 18:00 MONO NGO MD Feb 07, 2017 14:16
[2017-02-07 15:37] LABS: HEMATOCRIT 28.6 % (42.0-52.0); HEMOGLOBIN 8.9 g/dl (14.0-18.0)
[2017-02-07] MEDS: PANTOPRAZOLE (EC) 40 MG TAB PO SCH (17:39)
[2017-02-07] MEDS: SOD FERRIC GLUC COMPLX 125 MG in SOD CHLORIDE 0.9% 100 ML IVPB SCH (20:13)
[2017-02-07] MEDS: TEMAZEPAM 15 MG CAP PO PRN (22:02)
[2017-02-07 23:14] LABS: HEMATOCRIT 27.1 % (42.0-52.0); HEMOGLOBIN 8.2 g/dl (14.0-18.0)
[2017-02-08] VITALS (10 sets, daily range): BP systolic 112–140; BP diastolic 54–76; PULSE 83–105; RESP 16–18
[2017-02-08] MEDS: ACCU-CHEK XX SCH (02:00)
[2017-02-08] MEDS: HYDROCODONE/APAP (10/325) TAB PO PRN ×3 (04:48→13:24)
[2017-02-08] MEDS: PANTOPRAZOLE (EC) 40 MG TAB PO SCH (06:07)
[2017-02-08] MEDS: SUCRALFATE 1 GM TAB PO SCH ×3 (06:07→12:57)
[2017-02-08 07:19] LABS: BASOPHILS % 0.3 % (0.0-2.0); EOSINOPHILS # 0.3 10^3/ul (0.0-0.5); EOSINOPHILS % 4.7 % (0.0-7.0); HEMATOCRIT 26.3 % (42.0-52.0); HEMOGLOBIN 7.8 g/dl (14.0-18.0); LYMPHOCYTES # 1.8 10^3/ul (0.8-2.9); LYMPHOCYTES % 28.4 % (15.0-51.0); MEAN CORPUSCULAR HEMOGLOBIN 26.2 pg (29.0-33.0); MEAN CORPUSCULAR HGB CONC 29.7 g/dl (32.0-37.0); MEAN CORPUSCULAR VOLUME 88.3 fl (82.0-101.0); MONOCYTE # 0.6 10^3/ul (0.3-0.9); MONOCYTES % 10.1 % (0.0-11.0); NEUTROPHIL # 3.5 10^3/ul (1.6-7.5); NEUTROPHILS % 55.5 % (39.0-77.0); PLATELET COUNT 217 10^3/UL (140-415); RED BLOOD COUNT 2.98 10^6/ul (4.70-6.10); RED CELL DISTRIBUTION WIDTH 18.2 % (11.5-14.5); WHITE BLOOD COUNT 6.2 10^3/ul (4.8-10.8)
[2017-02-08] MEDS: SIMVASTATIN 10 MG TAB PO SCH (08:38)
[2017-02-08] MEDS: metFORMIN 500 MG TAB PO SCH (08:38)
[2017-02-08] MEDS: METOPROLOL 25 MG TAB PO SCH (08:39)
[2017-02-08] MEDS: EZETIMIBE 10 MG TAB PO SCH (08:40)
[2017-02-08] MEDS: BENAZEPRIL 20 MG TAB PO SCH (08:40)
[2017-02-08] MEDS: FENOFIBRATE 145 MG TAB PO SCH (08:40)
[2017-02-08] MEDS: LIDOCAINE 5% PATCH TD SCH (09:00)
--- NOTE | 2017-02-08 09:50 | CONS ---
Date/Time of Note Date/Time of Note DATE: 02/08/17 TIME: 09:48 Assessment/Plan Assessment/Plan Chief Complaint/Hosp Course GI bleed Atrial fibrillation, on anticoagulation CAD with distant history of PCI Diabetes History of hypertension, currently with borderline blood pressure Dyslipidemia Problems: Additional Assessment/Plan staged restart of AC in 1 week with eventual completion in 1 month if no recurrent bleed and consideration of cardioversion thereafter Consultation Date/Type/Reason Admit Date/Time Feb 05, 2017 at 11:51 Initial Consult Date Type of Consultation: cv 24 HR Interval Summary Free Text/Dictation resting without distress, no chest pain, no sob Detailed Summary Respiratory: no complaints Cardiovascular: no complaints Gastrointestinal: no complaints Musculoskeletal: no complaints Skin: no complaints Neurologic: no complaints Endocrine: no complaints Lymphatic: no complaints Exam/Review of Systems Vital Signs Vitals Vital Signs Date Time Temp Pulse Resp B/P Pulse Ox O2 Delivery O2 Flow Rate FiO2 02/08/17 08:35 93 02/08/17 07:44 97.8 16 120/57 96 02/06/17 14:31 Room Air 02/06/17 13:56 15 Intake and Output 02/07/17 02/07/17 02/08/17 15:00 23:00 07:00 Intake Total 850 ml Balance 850 ml Exam Constitutional: alert Head: atraumatic, normocephalic Neck: supple Respiratory: clear to auscultation Cardiovascular: irregular rhythm Gastrointestinal: soft Musculoskeletal: nl extremities to inspection Extremities: normal pulses Neurological: TRAINING DEVELOPMENT SPECIALIST II-XII intact Results Result Diagram: 02/08/17 0657 02/06/17 0755 Results 24 hrs Laboratory Tests Test 02/07/17 11:44 02/07/17 15:04 02/07/17 22:34 02/08/17 06:57 Bedside Glucose 111 Hemoglobin 8.9 L 8.2 L 7.8 L Hematocrit 28.6 L 27.1 L 26.3 L White Blood Count 6.2 # Red Blood Count 2.98 L Mean Corpuscular Volume 88.3 Mean Corpuscular Hemoglobin 26.2 L Mean Corpuscular Hemoglobin Concent 29.7 L Red Cell Distribution Width 18.2 H Platelet Count 217 Mean Platelet Volume 11.0 H Neutrophils % 55.5 Lymphocytes % 28.4 Monocytes % 10.1 Eosinophils % 4.7 Basophils % 0.3 Nucleated Red Blood Cells % 0.0 Neutrophils # 3.5 Lymphocytes # 1.8 Monocytes # 0.6 Eosinophils # 0.3 Basophils # 0.0 Nucleated Red Blood Cells # 0.0 Medications Medications Current Medications Metoprolol Tartrate (Lopressor) 25 mg BID PO Last administered on 02/08/17 08: 39; Admin Dose 25 MG; Start 02/05/17 at 21:00 Docusate Sodium (Colace) 100 mg Q12H PRN PO CONSTIPATION; Start 02/05/17 at 16: 30 Fenofibrate (Tricor) 145 mg DAILY PO Last administered on 02/08/17 08:40; Admin Dose 145 MG; Start 02/06/17 at 09:00 Simvastatin (Zocor) 10 mg DAILY PO Last administered on 02/08/17 08:38; Admin Dose 10 MG; Start 02/06/17 at 09:00 EZETIMIBE (Zetia) 10 mg DAILY PO Last administered on 02/08/17 08:40; Admin Dose 10 MG; Start 02/06/17 at 09:00 Benazepril HCl (Lotensin) 20 mg DAILY PO Last administered on 02/08/17 08:40; Admin Dose 20 MG; Start 02/06/17 at 09:00 Diagnostic Test (Pha) (Accu-Chek) 1 ea 02 XX ; Start 02/06/17 at 02:00 Sucralfate (Carafate) 1 gm Q6 PO Last administered on 02/08/17 06:07; Admin Dose 1 GM; Start 02/05/17 at 18:00 Miscellaneous Information 1 ea NOTE XX ; Start 02/05/17 at 17:30 Glucose (Glutose) 15 gm Q15M PRN PO DECREASED GLUCOSE; Start 02/05/17 at 17:30 Glucose (Glutose) 22.5 gm Q15M PRN PO DECREASED GLUCOSE; Start 02/05/17 at 17: 30 Dextrose (D50w Syringe) 25 ml Q15M PRN IV DECREASED GLUCOSE; Start 02/05/17 at 17:30 Dextrose (D50w Syringe) 50 ml Q15M PRN IV DECREASED GLUCOSE; Start 02/05/17 at 17:30 Glucagon (Glucagen) 1 mg Q15M PRN IM DECREASED GLUCOSE; Start 02/05/17 at 17:30 Glucose (Glutose) 15 gm Q15M PRN BUCCAL DECREASED GLUCOSE; Start 02/05/17 at 17 :30 Lidocaine (Lidoderm) 1 patch DAILY TD Last administered on 02/07/17 09:00; Admin Dose 1 PATCH; Start 02/06/17 at 05:00 Temazepam (Restoril) 30 mg HS PRN PO INSOMNIA Last administered on 02/07/17 22 :02; Admin Dose 30 MG; Start 02/06/17 at 10:00 Acetaminophen/ Hydrocodone Bitart ([place] (10/325)) 1 tab Q4H PRN PO PAIN LEVEL 1-5 Last administered on 02/08/17 08:38; Admin Dose 1 TAB; Start 02/06/17 at 10 :00 Acetaminophen/ Hydrocodone Bitart ([place] (10/325)) 2 tab Q4H PRN PO PAIN LEVEL 6-10 Last administered on 02/08/17 04:48; Admin Dose 2 TAB; Start 02/06/17 at 10:00 Hydromorphone HCl (Dilaudid) 1 mg Q4H PRN IV SEVERE PAIN LEVEL 7-10; Start at 10:00 Pantoprazole (Protonix Tab) 40 mg BID@06,18 PO Last administered on 02/08/17 06:07; Admin Dose 40 MG; Start 02/07/17 at 18:00 JAZZY KENT MD Feb 08, 2017 09:49
--- NOTE | 2017-02-08 15:35 | PDOCDIS ---
Discharge Instructions DIAGNOSIS Discharge Diagnosis 1) GI bleed secondary to marginal ulcer. 2) Atrial Fibrillation CONDITION Patient Condition: Stable HOME CARE INSTRUCTIONS: Diet Instructions: RegularYour diet recommendation is: small amounts more frequently throughout the day ACTIVITY: Activity Restrictions: Slowly Increase Activity FOLLOW UP/APPOINTMENTS Follow-up Plan Dr. Brooks (Gastroenterology) as scheduled. Dr. Alcala (Primary MD) in one week. Dr. Dubon (Cardiology) as 1 month Return to [facility] if recurrent black or blood in stool or blood in vomit. DOMINIQUE LINDSAY MD Feb 08, 2017 15:35
[2017-02-08] MEDS ORDERED: PANT40TA4 PO (15:38)
[2017-02-08] MEDS ORDERED: SUCR1TAB27 PO (15:38)
--- NOTE | 2017-02-08 16:08 | DS ---
Date/Time of Note Date/Time of Note DATE: 02/08/17 TIME: 16:06 Discharge Summary Admission/Discharge Info Admit Date/Time Feb 05, 2017 at 11:51 Discharge Date/Time Discharge Diagnosis 1) GI bleed secondary to marginal ulcer. 2) Atrial Fibrillation Patient Condition: Stable Consults Dr. Joshua Brooks Gastroenterology. Dr. 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 He had a prior history of an upper GI bleed roughly 3-4 years ago at the anastomotic site. 6 months ago he had some symptoms of dyspepsia without evidence of GI bleeding. I placed him on omeprazole at that time which he took for 2 months and self discontinued. He woke this morning feeling more tired than usual. He had normal bowel movements and was had the need to go to the bathroom again and had a mole melanotic bowel movement. Had 3 more melanotic bowel movements and presented to the emergency room. Since he has been here he has fortunately not had more sensations. He has not had any cardiac review of systems abnormalities outside of his chronic atrial fibrillation. Please note he was scheduled to have a cardioversion in December that was postponed due to issues with the insurance company. Anticoagulated for chronic atrial fibrillation Hospital Course GI bleed Atrial fibrillation, on anticoagulation CAD with distant history of PCI Diabetes History of hypertension, currently with borderline blood pressure Dyslipidemia Home Meds Active Scripts Sucralfate (Carafate) 1 Gm Tablet, 1 GM PO Q6 for 30 Days, #120 TAB Prov:DOMINIQUE LINDSAY MD 02/08/17 Pantoprazole* (Pantoprazole*) 40 Mg Tablet.dr 40 MG PO BID@,18 for 30 Days, # 60 Prov:DOMINIQUE LINDSAY MD 02/08/17 Reported Medications Metformin Hcl* (Metformin Hcl*) 1,000 Mg Tablet, 1000 MG PO WITH BREAKFAST DINNE , #30 TAB 02/05/17 Hydrocodone Bit-Acetaminophen* (Vicodin*) 5-300 Tab, 1 EACH PO Q4H Y for PAIN, TAB 12/01/13 Fenofibrate Nanocrystallized* (Tricor*) 145 Mg Tablet, 145 MG PO DAILY, TAB 12/01/13 Ezetimibe-Simvastatin (Vytorin) 10-10 Mg Tablet, 1 TAB PO HS, TAB 12/01/13 Ramipril (Altace) 10 Mg Tablet, 10 MG PO DAILY, TAB 12/01/13 Discontinued Reported Medications Apixaban* (Eliquis*) 5 Mg Tablet, 5 MG PO BID, TAB 02/05/17 Clopidogrel Bisulfate (Clopidogrel) 75 Mg Tablet, 75 MG PO DAILY, #30 TAB 02/05/17 Digoxin* (Digoxin*) 0.125 Mg Tab, 0.125 MG PO DAILY, #30 TAB 08/01/15 Metformin Hcl* (Metformin Hcl*) 500 Mg Tablet, 500 MG PO BID, #90 TAB 08/01/15 Metoprolol Succinate* (Toprol XL*) 100 Mg Tab.sr.24h, 100 MG PO DAILY, TAB 12/01/13 Follow-up Plan Dr. Brooks (Gastroenterology) as scheduled. Dr. Alcala (Primary MD) in one week. Dr. Dubon (Cardiology) as [address] [facility] if recurrent black or blood in stool or blood in vomit. Primary Care Provider John Alcala MD Time spent on discharge: > 30 minutes Pending Labs Laboratory Tests Test 02/07/17 22:34 02/08/17 06:57 Hemoglobin 8.2g/dl (14.0-18.0) 7.8g/dl (14.0-18.0) Hematocrit 27.1% (42.0-52.0) 26.3% (42.0-52.0) White Blood Count 6.210^3/ul (4.8-10.8) Red Blood Count 2.9810^6/ul (4.70-6.10) Mean Corpuscular Volume 88.3fl (82.0-101.0) Mean Corpuscular Hemoglobin 26.2pg (29.0-33.0) Mean Corpuscular Hemoglobin Concent 29.7g/dl (32.0-37.0) Red Cell Distribution Width 18.2% (11.5-14.5) Platelet Count 74046^3/UL (140-415) Mean Platelet Volume 11.0fl (7.4-10.4) Neutrophils % 55.5% (39.0-77.0) Lymphocytes % 28.4% (15.0-51.0) Monocytes % 10.1% (0.0-11.0) Eosinophils % 4.7% (0.0-7.0) Basophils % 0.3% (0.0-2.0) Nucleated Red Blood Cells % 0.0/100WBC (0.0-0.0) Neutrophils # 3.510^3/ul (1.6-7.5) Lymphocytes # 1.810^3/ul (0.8-2.9) Monocytes # 0.610^3/ul (0.3-0.9) Eosinophils # 0.310^3/ul (0.0-0.5) Basophils # 0.010^3/ul (0.0-0.1) Nucleated Red Blood Cells # 0.010^3/ul (0.0-0.0) DOMINIQUE LINDSAY MD Feb 08, 2017 16:08
== END 2017-02-08 17:41 | disposition home or self-care (01) | DRG 378 ==
LOC: E/R 10:04 → TEL 11:51
PROVIDERS: ADMIT Internal Medicine; ATTEND Internal Medicine
PROC: 30233N1 Transfusion of Nonautologous Red Blood Cells into Peripheral Vein, Percutaneous Approach (ICD-10-PCS; 2017-02-06)
PROC: 0W3P8ZZ Control Bleeding in Gastrointestinal Tract, Via Natural or Artificial Opening Endoscopic (ICD-10-PCS; principal; 2017-02-06 13:30)
DX: K25.0 Acute gastric ulcer with hemorrhage (principal); I50.32 Chronic diastolic (congestive) heart failure; I48.2 Chronic atrial fibrillation; I11.0 Hypertensive heart disease with heart failure; D62 Acute posthemorrhagic anemia; G47.33 Obstructive sleep apnea (adult) (pediatric); E78.5 Hyperlipidemia, unspecified; I25.10 Atherosclerotic heart disease of native coronary artery without angina pectoris; E11.9 Type 2 diabetes mellitus without complications; E53.8 Deficiency of other specified B group vitamins; K91.1 Postgastric surgery syndromes; M54.5 Low back pain; D50.9 Iron deficiency anemia, unspecified; Z79.02 Long term (current) use of antithrombotics/antiplatelets; Z79.84 Long term (current) use of oral hypoglycemic drugs; Z98.84 Bariatric surgery status; Z90.3 Acquired absence of stomach [part of]; Z98.61 Coronary angioplasty status
CPT/HCPCS: 36415; 36430; 71010; 80053; 82962; 84484; 85014; 85018; 85025; 85610; 85730; 86850; 86900; 86901; 86920; 87040; 87086; 93005; 96374; 96375; 97161; C9113; J2916; J3420; J7030; J7040; P9016

== ENCOUNTER → 2017-12-02 | Outpatient (CLI) | END | disposition home or self-care (01) ==

== ENCOUNTER 2018-08-13 19:28 | Observation (INO) | payer MEDICARE, BC ==
[~2018-08-13] VITALS: Ht 177.8 cm; Wt 99.4 kg
[~2018-08-13 19:28] MED LIST changes: -DIGO125T PO; +METF100010 PO; -METF500T4 PO; -METO-336 PO; +PANT40TA4 PO; +SUCR1TAB35 PO
[2018-08-13] MEDS ORDERED: ACETAMINOPHEN 325 MG TAB PO PRN (22:30)
[2018-08-13] MEDS ORDERED: ONDANSETRON 4 MG INJ IV PRN ×2 (22:30→23:30)
[2018-08-13] MEDS ORDERED: HYDR-3980 PO (22:41)
[2018-08-13] MEDS ORDERED: FENO145T37 PO (22:41)
[2018-08-13] MEDS ORDERED: TEMA-106 PO (22:41)
[2018-08-13] MEDS ORDERED: RAMI10CA48 PO (22:41)
[2018-08-13] MEDS ORDERED: METH10TA2 PO (22:41)
[2018-08-13] MEDS ORDERED: CLOP75TA19 PO (22:41)
[2018-08-13] MEDS ORDERED: APIX5TAB PO (22:41)
[2018-08-13] MEDS ORDERED: GABA400C14 PO (22:41)
[2018-08-13] MEDS ORDERED: EZET10TA32 PO (22:41)
[2018-08-13] MEDS ORDERED: METF-849 PO (22:41)
[2018-08-13] MEDS ORDERED: METO-336 PO (22:41)
[2018-08-13] MEDS ORDERED: DOXA2TAB PO (22:41)
[2018-08-13] MEDS ORDERED: CLOP75TA28 PO (22:41)
[2018-08-13] MEDS ORDERED: ATOR10TA65 PO (22:41)
[2018-08-13] MEDS ORDERED: DIGO125T PO (22:41)
[2018-08-13] MEDS ORDERED: MULT80TA PO (22:46)
[2018-08-13] MEDS ORDERED: ACET-141 PO (22:46)
[2018-08-13] MEDS ORDERED: CYAN500T46 PO (22:46)
[2018-08-13 23:18] VITALS: BP 176/78; PULSE 82; RESP 17
[2018-08-13 23:30] VITALS: Ht 177.8 cm; Wt 99.4 kg
[2018-08-13] MEDS ORDERED: DOCUSATE SODIUM 100 MG CAP PO PRN (23:30)
[2018-08-13] MEDS ORDERED: BISACODYL 10 MG SUPP PR PRN (23:30)
[2018-08-13] MEDS ORDERED: NA PHOSPHATE/BIPHOS 133 ML ENEMA PR PRN (23:30)
[2018-08-13] MEDS ORDERED: HYDROCODONE/APAP (5/325) TAB PO PRN (23:30)
[2018-08-13] MEDS ORDERED: ACETAMINOPHEN 500 MG TAB PO PRN (23:30)
[2018-08-13] MEDS ORDERED: ZOLPIDEM 5 MG TAB PO PRN (23:30)
[2018-08-13] MEDS ORDERED: MAGNESIUM HYDROXIDE 30ML CUP PO PRN (23:30)
[2018-08-13] MEDS ORDERED: NACL 0.9% 3 ML SYG IV SCH (23:30)
--- NOTE | 2018-08-13 23:38 | ERD ---
ER Documentation Chief Complaint Chief Complaint left leg swelling/pain, getting worse x 3 days. hx of dvt HPI Patient is a 72-year-old male with a history of chronic DVT who presents with left leg swelling. The patient said that he has had a DVT for 20 years. He said over the past 2 days the swelling has not gone down and it usually goes down much quicker than this. He spoke to Dr. Alcala send him to the emergency department for evaluation of DVT. Upon review of old medical records this is the patient's 10th visit to the ER since 2007. His primary doctor is Dr. Alcala. ROS All systems reviewed and are negative except as per history of present illness. Medications Home Meds Active Scripts Pantoprazole* (Pantoprazole*) 40 Mg Tablet., 40 MG PO BID@ for 30 Days, #60 Prov:DOMINIUQE LINDSAY MD 02/08/17 Reported Medications Cyanocobalamin* (Vitamin B12*) 500 Mcg Tab, 500 MCG PO DAILY, TAB 08/13/18 Multivit-Minerals/Folic Acid (Centrum Multigummies) 80 Mcg Tab.chew, 80 MCG PO DAILY, TAB.CHEW 08/13/18 Acetaminophen* (Acetaminophen*) 500 MG Extra Strength Tablet, 500 MG PO Q4H PRN for PAIN AND OR ELEVATED TEMP, TAB 08/13/18 Ezetimibe (Ezetimibe) 10 Mg Tablet, 10 MG PO DAILY for 90 Days, #90 08/13/18 Metformin* (Glucophage*) 500 Mg Tab, 500 MG PO BID for 30 Days, #120 08/13/18 Atorvastatin (Atorvastatin) 10 Mg Tablet, 10 MG PO DAILY for 90 Days, #90 08/13/18 Temazepam (Restoril) 15 Mg Cap, 15 MG PO QHS 08/13/18 Apixaban* (Eliquis*) 5 Mg Tablet, 5 MG PO BID for 30 Days, #60 08/13/18 Metoprolol Succinate* (Toprol XL*) 100 Mg Tab.sr.24h, 100 MG PO DAILY for 30 Days, #30 08/13/18 Digoxin* (Digitek*) 125 Mcg Tablet, 125 MCG PO DAILY for 30 Days, #30 08/13/18 Gabapentin* (Gabapentin*) 400 Mg Capsule, 400 MG PO TID for 30 Days, #90 08/13/18 Doxazosin Mesylate* (Doxazosin Mesylate*) 2 Mg Tablet, 2 MG PO DAILY for 30 Days, #30 08/13/18 Clopidogrel Bisulfate (Clopidogrel) 75 Mg Tablet, 75 MG PO DAILY for 30 Days, #30 08/13/18 Methadone Hcl* (Methadone*) 10 Mg Tab, 10 MG PO BID for 90 Days, #180 08/13/18 Hydrocodone Bit-Acetaminophen* (Vicodin*) 5-300 Tab, 1 EACH PO Q4H PRN for PAIN, TAB 12/01/13 Fenofibrate Nanocrystallized* (Tricor*) 145 Mg Tablet, 145 MG PO DAILY, TAB 12/01/13 Ramipril (Altace) 10 Mg Tablet, 10 MG PO DAILY, TAB 12/01/13 Discontinued Reported Medications Clopidogrel Bisulfate* (Clopidogrel Bisulfate*) 75 Mg Tablet, 75 MG PO DAILY for 30 Days, #30 08/13/18 Hydrocodone/Acetaminophen ([place] 10-325 Tablet) 1 Each Tablet, 1 EACH PO TID, TAB 08/13/18 Ramipril (Ramipril) 10 Mg Capsule, 10 MG PO DAILY for 30 Days, #30 08/13/18 Fenofibrate Nanocrystallized* (Fenofibrate*) 145 Mg Tablet, 145 MG PO DAILY for 30 Days, #30 08/13/18 Metformin Hcl* (Metformin Hcl*) 1,000 Mg Tablet, 1000 MG PO WITH BREAKFAST DINNE, #30 TAB 02/05/17 Ezetimibe-Simvastatin (Vytorin) 10-10 Mg Tablet, 1 TAB PO HS, TAB 12/01/13 Discontinued Scripts Sucralfate (Carafate) 1 Gm Tablet, 1 GM PO Q6 for 30 Days, #120 TAB Prov:DOMINIQUE LINDSAY MD 02/08/17 Allergies Allergies: Coded Allergies: No Known Allergies (Unverified Allergy, Unknown, 08/13/18) PMhx/Soc History of Surgery: Yes (back/hip, L inguinal hernia, resection malignant melanoma, cholecystectomy) Anesthesia Reaction: No Hx Neurological Disorder: No Hx Respiratory Disorders: Yes (Sleep apnea, ) Hx Cardiac Disorders: Yes (Stents, afib, CHF, CAD) Hx Psychiatric Problems: No Hx Miscellaneous Medical Probl: Yes (dvt, prior back surgeries, DM II, obese, a-fib) Hx Alcohol Use: Yes Hx Substance Use: No Hx Tobacco Use: No Smoking Status: Never smoker FmHx Family History: No diabetes Physical Exam Vitals Vital Signs Date Temp Pulse Resp B/P (MAP) Pulse Ox O2 O2 Flow FiO2 Time Delivery Rate 08/13/18 66 16 154/73 97 Room Air 22:51 (100) 08/13/18 65 17 166/78 100 Room Air 21:47 (107) 08/13/18 97.9 82 18 190/89 99 20:15 (122) Physical Exam Const: No acute distress Head: Atraumatic Eyes: Normal Conjunctiva ENT: Normal External Ears, Nose and Mouth. Neck: Full range of motion. No meningismus. Resp: Clear to auscultation bilaterally Cardio: Regular rate and rhythm, no murmurs Abd: Soft, non tender, non distended. Normal bowel sounds Skin: No petechiae or rashes Back: No midline or flank tenderness Ext: Significant left-sided swelling compared to the right Neur: Awake and alert Psych: Normal Mood and Affect Result Diagram: 08/13/18205108/13/182051 Results 24 hrs Laboratory Tests Test 08/13/18 20:52 White Blood Count 7.5 10^3/ul Red Blood Count 4.19 10^6/ul Hemoglobin 9.5 g/dl Hematocrit 33.2 % Mean Corpuscular Volume 79.2 fl Mean Corpuscular Hemoglobin 22.7 pg Mean Corpuscular Hemoglobin Concent 28.6 g/dl Red Cell Distribution Width 16.9 % Platelet Count 224 10^3/UL Mean Platelet Volume 11.4 fl Immature Granulocytes % 0.500 % Neutrophils % 59.7 % Lymphocytes % 27.2 % Monocytes % 9.0 % Eosinophils % 3.1 % Basophils % 0.5 % Nucleated Red Blood Cells % 0.0 /100WBC Immature Granulocytes # 0.040 10^3/ul Neutrophils # 4.5 10^3/ul Lymphocytes # 2.1 10^3/ul Monocytes # 0.7 10^3/ul Eosinophils # 0.2 10^3/ul Basophils # 0.0 10^3/ul Nucleated Red Blood Cells # 0.0 10^3/ul Prothrombin Time 16.8 Sec Prothrombin Time Ratio 1.3 INR International Normalized Ratio 1.35 Activated Partial Thromboplast Time 44.6 Sec Sodium Level 148 mmol/L Potassium Level 4.3 mmol/L Chloride Level 111 mmol/L Carbon Dioxide Level 25 mmol/L Anion Gap 12 Blood Urea Nitrogen 20 mg/dl Creatinine 0.87 mg/dl Est Glomerular Filtrat Rate mL/min mL/min Glucose Level 145 mg/dl Calcium Level 9.3 mg/dl Current Medications Medications Dose Sig/Samreen Start Time Status Last (Trade) Ordered Route PRN Stop Time Admin Dose Reason Admin Ondansetron 4 mg BRIDGE ORDER 08/13/18 HCl (Zofran PRN IV 22:30 Inj) NAUSEA/VOMITI 08/14/18 22:29 NG 650 mg ER BRIDGE 08/13/18 Acetaminophen PRN PO 22:30 (Tylenol .MILD PAIN 08/14/18 22:29 Tab) 1-3 OR TEMP 500 mg Q4H PRN 08/13/18 UNV Acetaminophen PO MILD 23:30 (Tylenol PAIN(1-3)OR Tab) ELEVATED TEMP Apixaban 5 mg BID PO 08/14/18 UNV (Eliquis) 09:00 10 mg DAILY PO 08/14/18 UNV Atorvastatin 09:00 Calcium (Lipitor) Clopidogrel 75 mg DAILY PO 08/14/18 UNV Bisulfate 09:00 (plaVIX) 500 mcg DAILY PO 08/14/18 UNV Cyanocobalami 09:00 n (Vitamin B12) Digoxin 0.125 mg DAILY PO 08/14/18 UNV (Digoxin) 09:00 Doxazosin 2 mg DAILY PO 08/14/18 UNV Mesylate 09:00 (Cardura) EZETIMIBE 10 mg DAILY PO 08/14/18 UNV (Zetia) 09:00 Fenofibrate 145 mg DAILY PO 08/14/18 UNV (Tricor) 09:00 Gabapentin 400 mg TID PO 08/14/18 UNV (Neurontin) 09:00 Metformin 500 mg BID PO 08/14/18 UNV HCl 09:00 (Glucophage) Methadone 10 mg BID PO 08/14/18 UNV HCl 09:00 (Methadone) Metoprolol 100 mg DAILY PO 08/14/18 UNV Succinate 09:00 (Toprol Xl) 40 mg BID@06,18 08/14/18 UNV Pantoprazole PO 06:00 (Protonix Tab) Lisinopril 20 mg DAILY PO 08/14/18 UNV (Zestril) 09:00 IV Flush 3 ml PER 3/28/19 UNV (NS 3 ml) PROTOCOL IV 23:30 Ondansetron 4 mg Q6H PRN 08/13/18 UNV HCl (Zofran IV 23:30 Inj) NAUSEA/VOMITI NG 1 tab Q6H PRN 08/13/18 UNV Acetaminophen PO .MOD PAIN 23:30 / 4-6 Hydrocodone Bitart ([place] (5/325)) 2 tab Q6H PRN 08/13/18 UNV Acetaminophen PO .SEVERE 23:30 / PAIN 7-10 Hydrocodone Bitart ([place] (5/325)) Docusate 100 mg Q12H PRN 08/13/18 UNV Sodium PO 23:30 (Colace) .CONSTIPATION Magnesium 30 ml DAILY PRN 08/13/18 UNV Hydroxide PO 23:30 (Milk Of Mag) .CONSTIPATION Bisacodyl 10 mg DAILY PRN 08/13/18 UNV (Dulcolax AL 23:30 Supp) .CONSTIPATION Sodium 133 ml DAILY PRN 08/13/18 UNV Biphosphate/ AL 23:30 Sodium .CONSTIPATION Phosphate (Fleet Enema) Zolpidem 5 mg QHS PRN 08/13/18 UNV Tartrate PO .INSOMNIA 23:30 (Ambien) Insulin NOVOLOG WITH MEALS 08/14/18 UNV Aspart *MILD* BEDTIME SC 08:00 (Novolog ALGORITHM Insulin Pen) Discontinue ONCE ONCE 08/13/18 UNV Miscellaneous all previ... XX 23:30 08/13/18 23:31 Information (* Miscellaneous Pharmacy Order) Procedures/MDM Ultrasound of the left lower extremity read by radiology as chronic DVT with no acute DVT. Patient is a 72-year-old male presents for chronic DVT with leg swelling. The patient is on Plavix and Eliquis already but is still having significant swelling. The patient will be admitted to the care of Dr. Wolf, likely benefit from vascular consultation while admitted. Departure Diagnosis: Primary Impression: DVT (deep venous thrombosis) DVT location: lower extremity Affected thrombotic vein of extremity: unspecified vein of extremity Chronicity: chronic Laterality: left Qualified Codes: I82.502 - Chronic embolism and thrombosis of unspecified deep veins of left lower extremity Condition: TIM Huff MD Aug 13, 2018 23:38
[2018-08-13] MEDS ORDERED: GLUCAGON 1 MG INJ IM PRN (23:45)
[2018-08-13] MEDS ORDERED: GLUCOSE GEL 15 GRAM TUBE PO PRN ×2 (23:45)
[2018-08-13] MEDS ORDERED: DEXTROSE 50% 50 ML SYRINGE IV PRN ×2 (23:45)
[2018-08-13] MEDS ORDERED: GLUCOSE GEL 15 GRAM TUBE BUCCAL PRN (23:45)
[2018-08-14] MEDS: HYDROCODONE/APAP (5/325) TAB PO PRN ×3 (00:37→17:55)
[2018-08-14 02:00] VITALS: BP 154/79; PULSE 77; RESP 18
[2018-08-14] MEDS: PANTOPRAZOLE (EC) 40 MG TAB PO SCH ×2 (06:34→17:49)
[2018-08-14 07:15] VITALS: BP 178/89; PULSE 91; RESP 16
[2018-08-14] MEDS: INSULIN ASPART [NOVOLOG] 3 ML PEN SC SCH ×3 (08:00→17:50)
[2018-08-14] MEDS: metFORMIN 500 MG TAB PO SCH ×2 (08:12→17:49)
[2018-08-14] MEDS ORDERED: APIXABAN 5 MG TABLET PO SCH (09:00)
[2018-08-14] MEDS ORDERED: DOXAZOSIN 2 MG TAB PO SCH (09:00)
[2018-08-14] MEDS ORDERED: METOPROLOL (XL) 100 MG TAB PO SCH (09:00)
[2018-08-14] MEDS ORDERED: EZETIMIBE 10 MG TAB PO SCH (09:00)
[2018-08-14] MEDS ORDERED: LISINOPRIL 20 MG TAB PO SCH (09:00)
[2018-08-14] MEDS ORDERED: ATORVASTATIN 10 MG TAB PO SCH (09:00)
[2018-08-14] MEDS ORDERED: CYANOCOBALAMIN 500 MCG TAB PO SCH (09:00)
[2018-08-14] MEDS ORDERED: FENOFIBRATE 145 MG TAB PO SCH (09:00)
[2018-08-14] MEDS ORDERED: METHADONE 10 MG TAB PO SCH (09:00)
[2018-08-14] MEDS ORDERED: GABAPENTIN 400 MG CAP PO SCH ×2 (09:00→14:00)
[2018-08-14] MEDS ORDERED: DIGOXIN 0.125 MG TAB PO SCH (09:00)
[2018-08-14] MEDS ORDERED: CLOPIDOGREL 75 MG TAB PO SCH (09:00)
[2018-08-14] MEDS ORDERED: SOD FERRIC GLUC COMPLX 125 MG in SOD CHLORIDE 0.9% 100 ML IVPB ONE (10:30)
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
[2018-08-14 13:59] VITALS: BP 179/92; PULSE 54; RESP 18
[2018-08-14] MEDS ORDERED: SOD FERRIC GLUC COMPLX 125 MG in SOD CHLORIDE 0.9% 100 ML IVPB STA (14:31)
--- NOTE | 2018-08-14 16:55 | PDOCDIS ---
Discharge Instructions DIAGNOSIS Discharge Diagnosis Iron deficiency anemia; Chronic Right DVT; Post phlebitic syndrome bilateral Lower Extremities; DM2; Post bariatric surgery malabsorption and dumping syndrome; Chronic pain syndrome; LDDz with Sciatica CONDITION [id number] Patient Condition: [id number] Fair HOME CARE INSTRUCTIONS: [id number] Diet Instructions: [id number] Reduced Calorie ACTIVITY: [id number] Activity Restrictions: [id number] No Restrictions FOLLOW UP/APPOINTMENTS Follow-up Plan Pain management next week; Dr. Alcala in 2 weeks MONO ALCALA MD Aug 14, 2018 16:55
[2018-08-14] MEDS: METHADONE 10 MG TAB PO SCH ×2 (17:49→18:34)
[2018-08-15] MEDS ORDERED: SOD FERRIC GLUC COMPLX 125 MG in SOD CHLORIDE 0.9% 100 ML IVPB SCH (13:00)
== END 2018-08-14 19:32 | disposition home or self-care (01) ==
LOC: E/R 19:28 → PP2 22:28
PROVIDERS: ADMIT Internal Medicine; ATTEND Internal Medicine
DX: I82.512 Chronic embolism and thrombosis of left femoral vein (principal); D50.9 Iron deficiency anemia, unspecified; E53.8 Deficiency of other specified B group vitamins; E66.9 Obesity, unspecified; Z68.30 Body mass index [BMI] 30.0-30.9, adult; E11.9 Type 2 diabetes mellitus without complications; E78.5 Hyperlipidemia, unspecified; I10 Essential (primary) hypertension; G47.33 Obstructive sleep apnea (adult) (pediatric); K76.0 Fatty (change of) liver, not elsewhere classified; M54.5 Low back pain
CPT/HCPCS: 36415; 80048; 80053; 80061; 81003; 82607; 82728; 82746; 83036; 83540; 85025; 85045; 85610; 85730; 87081; 93971; 99285; G0378; J2916; J1815